=== PATIENT | male | born 1955 | race Caucasian/White ===

== ENCOUNTER 2020-12-01 11:39 | Emergency (ER) | payer MEDICARE, SELFPAY ==
[2020-12-01 11:50] VITALS: BP 105/68; BP 122/67; PULSE 60; PULSE 64; RESP 16; TEMP 36.3; O2SAT 100; O2SAT 98; BMI 22.4
[2020-12-01 12:07] VITALS: BP 122/67; PULSE 64; RESP 16; TEMP 36.3; O2SAT 100
--- NOTE | 2020-12-01 12:18 | ED_ITS ---
HPI - Allergic Reaction General Chief complaint: Allergic Reaction Stated complaint: SYNCOPAL EPISODE S/P BEE STING Time Seen by Provider: 12/01/20 12:17 Source: patient Mode of arrival: ambulatory Limitations: no limitations History of Present Illness HPI narrative: Patient with no known history of allergic reactions stung by yellow jacket earlier today on his left thumb was feeling fine but ice after 45 minutes patient started feeling dizzy lightheaded almost passed out developed hives all over no difficulty in breathing no tongue swelling no shortness of breath patient was given 50 mg of Benadryl by EMS started feeling better no nausea no vomiting no diarrhea Related Data Previous Rx's Medication Instructions Recorded diphenhydramine HCl 25 mg capsule 50 mg PO Q6H PRN #20 cap 12/01/20 (Benadryl) prednisone 20 mg tablet 40 mg PO DAILY #10 tab 12/01/20 Allergies Allergy/AdvReac Type Severity Reaction Status Date / Time No Known Allergies Allergy Verified 12/01/20 12:24 Review of Systems Review of Systems: Yes all other systems are reviewed and are negative [facility] Past Medical History 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 Oriented X3. No acute distress. Eyes: No pallor or icterus ENT: Pharynx normal. Oral Mucosa moist lips normal tongue normal Neck: Normal inspection. Neck supple. CVS: Normal heart rate and rhythm. Pulses normal. Respiratory: No respiratory distress. Equal air entry bilateral, no wheezing/rales/rhonchi Abdomen: Soft and nontender. Bowel sounds are present, no mass palpable, no CVA tenderness Skin: Skin warm and dry. Diffuse urticarial rash on left thumb spreading to left forearm and on torso Extremities: No lower extremity edema. No calf tenderness Neuro: Oriented X 3. No motor deficit. No sensory deficit.No cerebellar signs , cranial nerves II-XII intact MDM - Allergic Reaction MDM Narrative Medical decision making narrative: PATIENT WITH ANAPHYLACTIC REACTION SECONDARY TO YELLOW JACKET STING FEELING MUCH BETTER NOW RASH GETTING BETTER WILL DISCHARGE PATIENT HOME ON BENADRYL AND PREDNISONE Discharge Plan Discharge Clinical Impression: Anaphylaxis Patient Disposition: Home, Self-Care Instructions: Insect Bite or Sting (ED) Additional Instructions: Take Benadryl 1-2 tablets every 6 hours as needed, prednisone as advised. His stay away from yellow [employer]. Report to the ER if not feeling better Prescriptions: New prednisone 20 mg tablet 40 mg PO DAILY Qty: 10 RF: 0 diphenhydramine HCl [Benadryl] 25 mg capsule 50 mg PO Q6H PRN (Reason: allergic reaction) Qty: 20 RF: 0 Interventions: ED Discharge Assessment Last Done: 12/01/20 14:37 Discharge Date/Time: 12/01/20 14:38
[2020-12-01] MEDS: methylPREDNISolone Sod Succ 125 MG/2 ML VIAL IVPUSH (13:00)
[2020-12-01] MEDS: Famotidine/PF 20 MG/2 ML VIAL IVPUSH (13:00)
--- NOTE | 2020-12-01 13:25 | PC.NURSE ---
Addendum entered by Marla Bond 12/01/20 13:26: light pink non confluent rash noted on forearms and abd. pt states it is not worse/nor better since arrival. denies SOB. unlabored resp in bed. no stridor. Original Note: sleeping. chest rise noted. skinpwd.
[2020-12-01 14:01] VITALS: BP 120/76; PULSE 68; RESP 16; O2SAT 98
--- NOTE | 2020-12-01 14:05 | PC.NURSE ---
pt ambulatory in hallway with steady gait. Pt states he feels much better, denies any itching at the rash on trunk. Pt states it is improving as well. Pt awaits dispo.
== END 2020-12-01 14:38 | disposition home or self-care (01) ==
PROVIDERS: Emergency Provider Internal Medicine
DX: R55 Syncope and collapse (principal); T63.441A Toxic effect of venom of bees, accidental (unintentional), initial encounter; T78.49XA Other allergy, initial encounter; Y92.9 Unspecified place or not applicable; X58.XXXA Exposure to other specified factors, initial encounter; Z79.899 Other long term (current) drug therapy
CPT/HCPCS: 96374; 96375; 99284; J2930